=== PATIENT | male | born 1935 | race Caucasian/White ===

== ENCOUNTER → 2023-01-03 10:10 | Outpatient (BNVA) | payer OTHER, SELFPAY | PROVIDERS: Referring Provider Physician Assistant; Visit Provider Psychiatry & Neurology Neurology | DX: G50.0 Trigeminal neuralgia (principal); R29.898 Other symptoms and signs involving the musculoskeletal system; Z95.0 Presence of cardiac pacemaker; Z91.041 Radiographic dye allergy status; G40.919 Epilepsy, unspecified, intractable, without status epilepticus; F43.10 Post-traumatic stress disorder, unspecified | CPT/HCPCS: 99203 ==

== ENCOUNTER → 2023-01-04 15:00 | Outpatient (BNVA) | payer OTHER, SELFPAY | PROVIDERS: PCP Physician Assistant; Referring Provider Psychiatry & Neurology Neurology; Visit Provider Psychiatry & Neurology Neurology | DX: G50.0 Trigeminal neuralgia (principal); G40.919 Epilepsy, unspecified, intractable, without status epilepticus | CPT/HCPCS: 95812; 95816 ==

== ENCOUNTER → 2023-02-23 14:18 | Outpatient (BNVA) | payer OTHER, SELFPAY | PROVIDERS: PCP Physician Assistant; Visit Provider Psychiatry & Neurology Neurology | DX: G50.0 Trigeminal neuralgia (principal); R29.898 Other symptoms and signs involving the musculoskeletal system | CPT/HCPCS: 99212 ==